=== PATIENT | female | born 1980 | race Caucasian/White ===

== ENCOUNTER 2021-11-02 08:03 | Day surgery (SDC) | payer OTHER, BC ==
[~2021-11-02] VITALS: Ht 165.1 cm; Wt 64.5 kg
[~2021-11-02 08:03] MED LIST: ADDERALL 20 MG20 MG PO; DEPO-SUBQ104 MG/0.6 SQ; EQ STOOL SOFTE1 EACH PO; PHILLIPS' LAXA100 MG PO; PRENATAL VITAM1 EACH PO; PROZAC20 MG PO; TRAZODONE HCL50 MG PO; TYLENOL325 MG PO
--- NOTE | 2021-11-02 14:21 | NUR ---
1415: PATIENT BACK IN DAY SURGERY ROOM FROM PACU. C/O 11/14 PAIN. PATIENT GIVEN CRACKERS AND THEN APPLESAUCE TO EAT. THEN MEDICATED FOR PAIN WITH 2 TABS OF PERCOCET. VS CHECKED. IV SITE WNL. SCDs ON. BANDAIDS X 3 ON ABDOMEN WITH SCANT AMOUNT OF RED DRAINAGE. PERIPAD IN PLACE WITH NO DRAINAGE. TOLERATING WATER. CALL LIGHT WITHIN REACH. AT BEDSIDE.
[2021-11-02] MEDS ORDERED: OXYCODONE HCL5 MG PO (14:28)
--- NOTE | 2021-11-02 14:28 | NUR ---
11/02/21 1428 Eda Sanchez 1306 PT ARRIVED IN PACU NON RESPONSIVE TO NOXIOUS STIMULI WITH OPA IN PLACE. CHIN LIFT HELD BY RN. 1316 PT REACTIVE. OPA REMOVED. 1324 PT CRYING "IT HURTS." FENTANYL 25MCG GIVEN IVP. 1329 VERBAL ORDER FROM ANESTHESIA. TYLENOL 1GM IV INFUSING. 1332 CRYING AND C/O ABD PAIN. UNABLE TO RATE. FENTANYL 50MCG GIVEN IVP. 1340 TAKING SIPS OF WATER AND TALKING TO STAFF. 1343 CONTINUES TO C/O ABD PAIN. UNABLE TO RATE. FENTANYL 25MCG GIVEN IVP. 1355 MARTINEZ DC'D. BALLOON INTACT. URINE NEON YELLOW AND 700ML EMPTIED. 1400 TO DS. REPORT GIVEN TO RN. AT BEDSIDE. PT WILL TRY JELLO AND TAKE ORAL PAIN PILLS WHEN READY.
[2021-11-02] MEDS ORDERED: IBUPROFEN800 MG PO (14:29)
[2021-11-02] MEDS ORDERED: ACETAMINOPHEN500 MG PO (14:29)
[2021-11-02] MEDS ORDERED: ONDANSETRON ODT8 MG PO (14:30)
--- NOTE | 2021-11-02 15:07 | NUR ---
1500 awoke for vs. rates pain 8/10, able to sleep. children came in and she became more awake and talking.
--- NOTE | 2021-11-02 15:43 | NUR ---
1520: PATIENT C/O NAUSEA. COOL WASHCLOTH PLACED ON FOREHEAD. MEDICATED FOR NAUSEA WITH IV ZOFRAN. PATIENT DROWSY. AWAKENS EASILY TO VOICE. FALLS BACK TO SLEEP EASILY. FAMILY AT BEDSIDE. CALL LIGHT WITHIN REACH.
--- NOTE | 2021-11-02 15:47 | NUR ---
PATIENT REQUESTS SOMETHING TO EAT AND ICED TEA. BOTH ORDERED FROM DIETARY.
--- NOTE | 2021-11-02 16:18 | NUR ---
1610: PATIENT SITTING UP IN BED. VISITING WITH FAMILY MEMBERS. VS CHECKED. NAUSEA IMPROVED. WORKING ON EATING SOUP. SCDs ON. CALL LIGHT WITHIN REACH.
--- NOTE | 2021-11-02 16:30 | NUR ---
HAS BEEN UP TO BR. VOIDS 100MLS.
--- NOTE | 2021-11-02 16:48 | NUR ---
CALL TO DR SANDHU BLADDER SCANNED 172 MLS AFTER VOIDED 100MLS. STATES SHE WILL COME SEE PT.
--- NOTE | 2021-11-02 17:40 | NUR ---
DR SANDHU HERE TO SEE PT. UP TO BR VOIDS 300PLUS MLS URINE. NO BLEEDING NOTED ON BRIDGET PAD. PT OKD TO GO HOME. DR SANDHU AWARE OF VS.
--- NOTE | 2021-11-06 04:30 | OR ---
[facility] [address], [place] [address] Signed DATE OF OPERATION: 11/02/2021 SURGEON: Jackeline Huizar MD EPIC WILLOW SPECIALIST: Adis Noel DO PREOPERATIVE DIAGNOSIS: Dysmenorrhea, menorrhagia, dyspareunia, prior tubal ligation. POSTOPERATIVE DIAGNOSIS: Dysmenorrhea, menorrhagia, dyspareunia, prior tubal ligation with endometriosis on the posterior aspect of the uterus. PROCEDURE: Total laparoscopic hysterectomy with bilateral salpingectomy, cystoscopy. ANESTHESIA: General ET. ESTIMATED BLOOD LOSS: 75 mL. DRAINS: Smith catheter. INDICATIONS AND FINDINGS: The patient is 40-year-old female who has been having ongoing issues with dysmenorrhea, menorrhagia, and dyspareunia. She does not tolerate hormonal contraception in any form. She is status post prior tubal ligation. After the options were discussed, she wished to proceed with definitive treatment. At the time of surgery, exam under anesthesia was normal. At the time of laparoscopy, she had evidence of prior tubal ligation. The ovaries were normal. The posterior aspect of the uterus had a chocolate cyst. DESCRIPTION OF PROCEDURE: The patient was prepped and draped in the dorsal lithotomy position. A weighted speculum was placed. The anterior lip of the cervix was visualized and grasped with a single-tooth tenaculum. The cavity was sounded to 9 cm. The endocervical canal was then dilated and a VCare cannula placed in the balloon inflated at the fundus. The tenaculum and speculum were removed. The cup was fitted over the cervix and a locking Electronically Signed By: JACKELINE HUIZAR MD 11/06/21 0430 PATIENT NAME: SHAKIR PATE OPERATIVE REPORT DATE OF : 78 REPORT #: [id number] PHYSICIAN: JACKELINE HUIZAR MD PCP: RAMONE DICKENS PAC REPORT IS CONFIDENTIAL AND NOT TO BE RELEASED WITHOUT AUTHORIZATION [facility] [address], [place] [address] Signed cap fitted into place. Attention was directed above. The infraumbilical area was injected with 0.5% Marcaine plain. An incision was made with a knife, and each layer serially elevated and incised until the fascia was opened and identified. Stay sutures of 0 Vicryl were placed. The peritoneum was opened bluntly. Placement of the Palacio was then done and the balloon inflated and it was tied into place. Placement of the scope confirmed proper positioning. The pelvis was visualized and the planned procedure appeared appropriate. The secondary ports were then placed. These were placed laterally and slightly below the level of the umbilicus. Each of these areas were transilluminated, injected with the Marcaine, incision made with a knife and the trocars placed under direct vision. The left-sided port was a 5 mm port and the right was a Veress needle with the expanding port. The LigaSure [place] device was then used to serially coagulate and divide the mesosalpinx of the patient's left tube and this was divided at the cornu and the specimen retrieved. The same procedure was done on the patient's right. The patient's left utero-ovarian pedicle and round ligament were then serially coagulated and divided. This allowed the anterior leaf of the peritoneum to be incised allowing for a partial bladder flap. The posterior peritoneum was taken down as well. The uterine vessels were then skeletonized and coagulated multiple times and then divided. Following this, attention was directed to the patient's right side where the same procedure was done. This completed the bladder flap as well as the peritoneum posteriorly and the uterine vessels were coagulated and divided. Following this, further dissection was done both posteriorly and anteriorly till the cup could be appreciated. Following this, it was felt that the specimen could be removed. The J-hook was then used to separate the specimen from the vaginal cuff. This was begun posteriorly and wrapped around the left anteriorly and then again posteriorly and wrapped around the right. The specimen was retrieved vaginally intact. The vaginal canal was then packed with a wet lap in a glove to allow the pneumoperitoneum to reaccumulate. Following this, the abdomen was irrigated. There were some bleeding points near the patient's left uterine vessels and these were controlled with the LigaSure as well as monopolar cautery. The cuff was closed using the Endostitch. This was begun at the patient's right uterosacral ligament, taking care to incorporate the vaginal mucosa both posteriorly and anteriorly and run to the patient's left uterosacral ligament and back to the center. Following this, the pelvis was inspected and there was good hemostasis noted. Because of the large raw area, Tisseel was sprayed over the cuff and to aid in hemostasis. The instruments removed from the abdomen after allowing as much CO2 as possible to escape. The fascial incision at the umbilicus was reidentified and closed with a running suture of 0 Vicryl. The skin incisions were closed with subcuticular sutures of 3-0 Vicryl Rapide. Attention was directed down below and the glove was removed from the vagina. The Smith catheter was then removed and the cystoscopy was done. She had received IV fluorescein. The 30-degree cystoscope was introduced and there was no evidence of any injury to the bladder. Both ureteral orifices were seen almost immediately with prompt spill of fluorescein stained urine bilaterally. Following this, the bladder was drained and the Electronically Signed By: JACKELINE HUIZAR MD 11/06/21 0430 PATIENT NAME: SHAKIR PATE OPERATIVE REPORT DATE OF : 78 REPORT #: [id number] PHYSICIAN: JACKELINE HUIZAR MD PCP: RAMONE DICKENS PAC REPORT IS CONFIDENTIAL AND NOT TO BE RELEASED WITHOUT AUTHORIZATION [facility] [address], [place] [address] Signed Smith catheter was replaced. All sponge and needle counts were correct. She was taken to the recovery room in good condition. Jackeline Huizar MD PJW/MODL /[id number] cc: Dr. FONSECA Noel Copies: ~ Electronically Signed By: JACKELINE HUIZAR MD 11/06/21 0430 PATIENT NAME: SHAKIR PATE OPERATIVE REPORT DATE OF : 78 REPORT #: [id number] PHYSICIAN: JACKELINE HUIZAR MD PCP: RAMONE DICKENS PAC REPORT IS CONFIDENTIAL AND NOT TO BE RELEASED WITHOUT AUTHORIZATION
== END 2021-11-02 17:30 | disposition home or self-care (01) ==
LOC: DS 08:03
PROVIDERS: ATTEND Obstetrics & Gynecology
PROC: 0UT74ZZ Resection of Bilateral Fallopian Tubes, Percutaneous Endoscopic Approach (ICD-10-PCS; 2021-11-02)
PROC: 0UT94ZZ Resection of Uterus, Percutaneous Endoscopic Approach (ICD-10-PCS; principal; 2021-11-02 11:45)
DX: N80.0 Endometriosis of uterus (principal); N92.1 Excessive and frequent menstruation with irregular cycle; N94.12 Deep dyspareunia; N94.4 Primary dysmenorrhea; D25.9 Leiomyoma of uterus, unspecified; J45.20 Mild intermittent asthma, uncomplicated; Z98.51 Tubal ligation status; Z88.2 Allergy status to sulfonamides; Z87.891 Personal history of nicotine dependence
CPT/HCPCS: 00840; J0131; J0330; J0461; J0690; J1100; J1644; J1885; J2250; J2405; J2704; J2765; J3010; J7121

== ENCOUNTER 2023-11-19 09:30 | Emergency (ER) | payer OTHER, BC ==
[~2023-11-19] VITALS: Ht 165.1 cm; Wt 72.2 kg
[~2023-11-19 09:30] MED LIST changes: +ACETAMINOPHEN500 MG PO; +IBUPROFEN800 MG PO; +ONDANSETRON ODT8 MG PO; +OXYCODONE HCL5 MG PO
[2023-11-19] MEDS ORDERED: KETOROLAC TROMETHAMINE 30 MG/ML VIAL IV ONE (10:15)
[2023-11-19] MEDS ORDERED: PROPRANOLOL HCL10 MG PO (10:19)
[2023-11-19] MEDS ORDERED: FLUOXETINE HCL40 MG PO (10:20)
[2023-11-19] MEDS ORDERED: DOXYCYCLINE MO100 MG PO (10:20)
[2023-11-19] MEDS ORDERED: METHYLPHENIDATE27 MG PO (10:20)
[2023-11-19 10:35] LABS: BASOPHILS 0.2 % (0-2); EOSINOPHILS 0.3 % (0-6); HEMATOCRIT 38.7 % (35.0-50.0); HEMOGLOBIN 13.7 g/dL (12.0-18.0); LYMPHOCYTES 34.5 % (24-44); MCH 31.9 (27-36); MCHC 35.4 g/dl (30-36); MONOCYTES 6.5 % (0-12); NEUTROPHILS 58.5 % (39-80); PLATELET COUNT 241 K/uL (140-440); RBC 4.29 M/ul (4.3-5.7); RDW 12.5 (10.5-15.0)
[2023-11-19 11:00] LABS: ALBUMIN 3.9 g/dL (3.4-5.0); ALBUMIN/GLOBULIN RATIO 1.08 (1.1-2.4); ALKALINE PHOSPHATASE 75 U/L (46-116); ALT (SGPT) 32 U/L (14-59); ANION GAP 13.5 (7-21); AST (SGOT) 16 U/L (15-37); BILIRUBIN, TOTAL 0.4 ng/dL (0.2-1.0); BUN/CREATININE RATIO 15.87 (6.0-28.6); CALCIUM 8.8 mg/dL (8.5-10.1); CARBON DIOXIDE 25 mmol/L (21-32); CHLORIDE 105 mmol/L (98-107); CREATININE, SERUM 0.63 mg/dL (0.55-1.02); GLOMERULAR FILTRATION RATE,EST 113 mL/min (>60); POTASSIUM 3.5 mmol/L (3.5-5.1); PROTEIN, TOTAL 7.5 g/dL (6.4-8.2); UREA NITROGEN 10 mg/dL (7-18)
[2023-11-19 11:26] LABS: INFLUENZA B NAA NEGATIVE (NEGATIVE); RESPIRATORY SYNCYTIAL VIR NAA NEGATIVE (NEGATIVE)
[2023-11-19 11:44] VITALS: BP 101/69
--- NOTE | 2023-11-22 21:28 | EKG ---
[facility] [address] [facility] [place] [address] Signed Normal sinus rhythm Nonspecific ST and T wave abnormality Abnormal ECG When compared with ECG of 24-OCT-2021 15:08, No significant change was found Confirmed by Juanjo Agustin MD ([id number]) on 11/22/2023 9:28:23 PM Electronically Signed By: JUANJO AGUSTIN DO 11/22/232127 PATIENT NAME: SHAKIR PATE LANDY Electrocardiogram DATE OF : 78 PHYSICIAN: JUANJO AGUSTIN DO REPORT #: [id number] REPORT IS CONFIDENTIAL AND NOT TO BE RELEASED WITHOUT AUTHORIZATION
== END 2023-11-19 11:45 | disposition home or self-care (01) ==
LOC: ED 09:30
PROVIDERS: Emergency Medicine
DX: R06.02 Shortness of breath (principal); F90.9 Attention-deficit hyperactivity disorder, unspecified type; Z88.2 Allergy status to sulfonamides; Z79.899 Other long term (current) drug therapy
CPT/HCPCS: 36415; 71045; 80053; 83880; 84484; 85025; 85379; 87502; 93005; 93010; 96374; 99285-25; J1885; U0002

== ENCOUNTER 2024-04-24 20:53 | Emergency (ER) | payer OTHER, BC ==
[~2024-04-24] VITALS: Ht 165.1 cm; Wt 70.0 kg
[~2024-04-24 20:53] MED LIST changes: +DOXYCYCLINE MO100 MG PO; +FLUOXETINE HCL40 MG PO; +METHYLPHENIDATE27 MG PO; +PROPRANOLOL HCL10 MG PO
[2024-04-24 23:20] VITALS: BP 123/76
== END 2024-04-24 23:21 | disposition home or self-care (01) ==
LOC: ED 20:53
DX: S60.221A Contusion of right hand, initial encounter (principal); X58.XXXA Exposure to other specified factors, initial encounter; Z88.2 Allergy status to sulfonamides; Z79.899 Other long term (current) drug therapy
CPT/HCPCS: 73130; 99283

== ENCOUNTER 2024-10-10 05:53 | Day surgery (SDC) | payer OTHER, BC ==
[~2024-10-10] VITALS: Ht 165.1 cm; Wt 73.0 kg
[~2024-10-10 05:53] MED LIST changes: +CLONAZEPAM0.5 MG PO; +LACTATED RINGER'S 1,000 ML IV SCH
[2024-10-10 06:20] VITALS: BP 110/70
--- NOTE | 2024-10-10 06:29 | NUR ---
ISABEL AT BS AND IS INSURANCE SALES SPECIALIST.
[2024-10-10] MEDS ORDERED: LIDOCAINE HCL 1% 5 ML SDV INJ ONE (07:00)
[2024-10-10] MEDS ORDERED: IBLOOD GLUCOSE TEST STRIP 1 EA TEST VI PRN (07:00)
[2024-10-10] MEDS ORDERED: LIDOCAINE HCL 2% 5 ML SDV ONE (07:20)
--- NOTE | 2024-10-10 07:56 | NUR ---
PT NOT AVAILABLE FOR VISIT. PROVIDED PRAYER.
--- NOTE | 2024-10-10 08:34 | NUR ---
10/10/24 0834 Noel,Monica Neumann 0832: PATIENT/ C/O NAUSEA. NEW ORDERS OBTAINED FROM SHORT HAUL DRIVER.
[2024-10-10] MEDS ORDERED: DEXAMETHASONE SOD PHOS 4 MG/ML VIAL IV PRN (08:45)
[2024-10-10 10:20] VITALS: BP 93/62
--- NOTE | 2024-10-14 14:18 | PATH ---
[facility] [address] [place], [place] [address] Signed SPECIMEN(S): A ILEOCECAL VALVE COLON BIOPSY SPECIMEN SOURCE: A. ILEOCECAL VALVE COLON BIOPSY CLINICAL HISTORY: History of polyps, rectal bleeding, lower abdominal pain, ileocecal polyp, sigmoid diverticulosis FINAL PATHOLOGIC DIAGNOSIS: Ileocecal valve, biopsies - Benign ileocecal mucosa with focal acute neutrophilic inflammation, nonspecific. - Negative for granulomas or dysplasia. AMB MICROSCOPIC EXAMINATION: Histologic sections of all submitted blocks are examined by light microscopy. These findings, together with the gross examination, support the pathologic diagnosis. GROSS DESCRIPTION: The specimen, labeled and designated "Roxi, ileocecal valve colon biopsy," is received in formalin and consists of four fuentes soft tissue fragments, ranging from 0.3-0.4 cm. Entirely submitted in (A1). VB (under the direct supervision of a pathologist) The Gross Description was prepared using a voice recognition system. The report was reviewed for accuracy; however, sound-alike word errors, addition and/or deletions may occur. If there is any question about this report, please contact Client Services. ADDITIONAL NOTES: Immunohistochemical and/or in situ hybridization studies if performed in this case included appropriate positive controls that reacted as expected. This test was developed and its performance characteristics determined by [facility]. It has not been cleared or approved by the U.S. Food and Drug Administration. The FDA has determined that such clearance or approval is not necessary. This test is used for clinical purposes. It should not be regarded as investigational or for research. [facility] is certified under the Clinical Laboratory Improvement PATIENT NAME: SHAKIR PATE PATHOLOGY DATE OF : 78 REPORT #: [id number] PHYSICIAN: ALVA LOVE PCP: RAMONE DICKENS PAC REPORT IS CONFIDENTIAL AND NOT TO BE RELEASED WITHOUT AUTHORIZATION [facility] [address] [facility] [place] [address] Signed Amendments of 1988 (CLIA) as qualified to perform high complexity clinical laboratory testing. PERFORMING LABORATORY: Technical component was performed by [facility], [address] [place] [address] (CLIA# [id number]). Professional interpretation was performed by [facility] [address] [place] [id number] Diagnostician: Sharee Orta MD Pathologist Electronically Signed 10/14/2024 Copies: ~ PATIENT NAME: SHAKIR PATE PATHOLOGY DATE OF : 78 REPORT #: [id number] PHYSICIAN: ALVA LOVE PCP: RAMONE DICKENS PAC REPORT IS CONFIDENTIAL AND NOT TO BE RELEASED WITHOUT AUTHORIZATION
== END 2024-10-10 09:36 | disposition home or self-care (01) ==
LOC: DS 05:53
PROVIDERS: ATTEND Surgery
PROC: 0DBC8ZX Excision of Ileocecal Valve, Via Natural or Artificial Opening Endoscopic, Diagnostic (ICD-10-PCS; principal; 2024-10-10 07:30)
DX: K51.40 Inflammatory polyps of colon without complications (principal); K21.9 Gastro-esophageal reflux disease without esophagitis; Z79.899 Other long term (current) drug therapy; Z88.2 Allergy status to sulfonamides; Z91.018 Allergy to other foods; Z91.048 Other nonmedicinal substance allergy status
CPT/HCPCS: 00811; J1100; J2003; J2405; J2704; J7121

== ENCOUNTER 2024-10-29 09:51 | Inpatient (IN) | payer OTHER, BC ==
[2024-10-29] VITALS (7 sets, daily range): BP systolic 107–138; BP diastolic 57–75
[~2024-10-29] VITALS: Ht 165.1 cm; Wt 70.0 kg
[~2024-10-29 09:51] MED LIST changes: +AMP/SULBACTAM SOD 3 GM in SODIUM CHLORIDE 0.9% 100 ML IV SCH; +HEParin SOD (PORCINE) 5,000 UNIT/ML SDV SUB-Q SCH; +IBLOOD GLUCOSE TEST STRIP 1 EA TEST VI PRN; +LIDOCAINE HCL 1% 5 ML SDV INJ ONE
[2024-10-29] MEDS ORDERED: fentaNYL citrate 100 MCG/2 ML VIAL ONE (11:27)
[2024-10-29] MEDS ORDERED: KETAMINE in NS 50 MG/5 ML SYR ONE ×2 (11:27→13:11)
[2024-10-29] MEDS ORDERED: ACETAMINOPHEN 1,000 MG/100 ML VIAL ONE (11:28)
[2024-10-29] MEDS ORDERED: MAGNESIUM SULFATE 1 GM/2 ML VIAL ONE ×2 (11:28→13:11)
[2024-10-29] MEDS ORDERED: SODIUM CHLORIDE 0.9% 40 ML IV ONE ×2 (11:28→13:12)
[2024-10-29] MEDS ORDERED: LIDOCAINE HCL 2% 5 ML SDV ONE ×3 (11:28→13:11)
[2024-10-29] MEDS ORDERED: DEXAMETHASONE SOD PHOS 4 MG/ML VIAL ONE ×2 (11:28→14:28)
[2024-10-29] MEDS ORDERED: SCOPOLAMINE 1 MG/3 DAYS PATCH 1 EACH TDSY ONE (11:39)
[2024-10-29] MEDS ORDERED: ROCURONIUM BROMIDE 50 MG/5 ML SYR ONE ×2 (11:39→12:20)
[2024-10-29] MEDS ORDERED: GLYCOPYRROLATE 1 MG/5 ML MDV ONE (12:20)
[2024-10-29] MEDS ORDERED: KETOROLAC TROMETHAMINE 30 MG/ML VIAL ONE (14:38)
[2024-10-29] MEDS ORDERED: NALOXONE HCL 0.4 MG SYR IV PRN (14:45)
[2024-10-29] MEDS ORDERED: fentaNYL citrate 50 MCG/ML SDV IV PRN (14:45)
[2024-10-29] MEDS ORDERED: HYDROmorphone HCL 1 MG/ML SYR IV PRN (14:45)
[2024-10-29] MEDS ORDERED: IBLOOD GLUCOSE TEST STRIP 1 EA TEST VI PRN (14:45)
[2024-10-29] MEDS ORDERED: SUGAMMADEX SODIUM 200 MG/2 ML ML ONE (14:50)
[2024-10-29] MEDS ORDERED: KETOROLAC TROMETHAMINE 15 MG/ML VIAL IV PRN (15:30)
[2024-10-29] MEDS ORDERED: LACTATED RINGER'S 1,000 ML IV SCH (15:30)
--- NOTE | 2024-10-29 15:40 | NUR ---
10/29/24 1540 Carolina Moore 1521-PATIENT ARRIVED TO PACU ON 6L MASK RR EVEN. PATIENT LAYING SUPINE SR HR 60'S. NG TUBE TO RIGHT NARE MARTINEZ CATHETER DRAINING YELLOW URINE. INCISION SITES INTACT TO ABDOMEN. PATIENT REACHING ARM TO RN. 1522-PATIENT PLACED IN TRENDELEBERG POSITION IVF OPENED BP'S LOW 70'S. PATIENT IS CONFUSED NODDING HEAD. 1525-JOE GROUND CREW CHIEF GAVE 20 MG EPHEDRINE IVP FOR BP 68/41. IVF OPENED AND INFUSING. NG TO LIS. 1527 BP INCREASED TO 80'S/60'S. RN ASKED PATIENT NAME REPORTS "MOM" WHEN RN ASKED WHERE PATIENT IS SHAKES HEAD NO EYES REMAIN CLOSED. PATIENT ORIENTED TO PACU. 1535-PATIENT HAS EYES CLOSED DOING SIGN LANGUAGE IN AIR. PLACED ON RA 93% RR EVEN.
[2024-10-29] MEDS ORDERED: MORPHINE SULFATE 4 MG/ML VIAL IV PRN (15:45)
[2024-10-29] MEDS ORDERED: LIDOCAINE 2% VISCOUS 6 ML SYR TOP ONE (16:00)
--- NOTE | 2024-10-29 16:14 | NUR ---
REPORT RECEIVED FROM SMITH HORTON.
--- NOTE | 2024-10-29 16:20 | NUR ---
PATIENT IS LYING IN BED WITH EYES OPEN AND RESPIRATIONS ARE EVEN AND UNLABORED. ASSESSMENT COMPLETE AND DOCUMENTED IN THE CHART. PATIENT IS ALERT AND ORIENTED TIMES FOUR. SCD'S IN PLACE. CARDIAC WITH NORMAL S1 AND S2 ON AUSCULTATION. RADIAL AND PEDAL PULSES ARE STRONG BILATERALLY. NO EDEMA NOTED. CAPILLARY REFILL IS LESS THAN 3 SECONDS IN THE UPPER AND LOWER EXTREMITIES. SENSATION INTACT WITH NO COMPLAINTS OF NUMBNESS OR TINGLING. PATIENT IS ON 1 L NC WITH THE CPOX AT BEDSIDE. LUNG SOUNDS ARE CLEAR THROUGHOUT. PATIENT IS NPO WITH THE NG TUBE SET TO MEDIUM INTERMITTENT SUCTION. BOWEL TONES ARE ACTIVE IN ALL FOUR QUADRANTS. MARTINEZ CATHETER IN PLACE AND DRAINING YELLOW URINE. IV SITE FLUSHED WITH 10 ML NORMAL SALINE. SURGICAL SITES WITH SUTURES AND DERMABOND. PATIENT RATED PAIN 5/10 IN THE ABDOMEN AND IS REQUESTING SOMETHING FOR PAIN. PATIENT WITH SEVERAL VISITORS IN THE ROOM. PATIENT STATED NO FURTHER NEEDS AT THIS TIME. CALL LIGHT AND PERSONAL BELONGINGS ARE WITHIN REACH.
--- NOTE | 2024-10-29 18:40 | NUR ---
INTAKE AND OUTPUT TAKEN AND DOCUMENTED IN THE CHART. PATIENT REPOSITIONED ON HER RIGHT SIDE WITH PILLOWS. PATIENT WITH FOUR VISITORS IN THE ROOM AT THIS TIME. CALL LIGHT AND PERSONAL BELONGINGS ARE WITHIN REACH.
--- NOTE | 2024-10-29 19:49 | NUR ---
REPORT RECEIVED FROM DAY SHIFT RN. VS OBTAINED AND RECORDED. PATIENT REPOSITIONED TO LEFT SIDE. THIS RN DISCUSSED PAIN MANAGEMENT PLAN FOR THE NIGHT. PATIENT VERBILIZED UNDERSTANDING. PATIENT DENIES FURTHER NEEDS. CALL LIGHT IN REACH.
--- NOTE | 2024-10-29 19:50 | NUR ---
call light on, in pt rm to see needs, pt asking about pain meds/available?, pt also repositioned to the rt side, pillow to the left shoulder and hip, 2x pillow on the knees, RN informed
[2024-10-29] MEDS ORDERED: AMP/SULBACTAM SOD 3 GM in SODIUM CHLORIDE 0.9% 100 ML IV SCH (20:00)
--- NOTE | 2024-10-29 20:20 | NUR ---
PATIENT RESTING IN BED. SCHEDULED IV ABX INFUSING PER ORDER. ASSESSMENT COMPLETE. BOWEL TONES ACTIVE. ABD LAP SITES C/D/I. MARTINEZ CATH CARE PROVIDED PER PROTOCOL. SCDs IN PLACE. 1L NC REMAINS IN PLACE. CPOX IN PLACE. NG TUBE ON MIWS. NO FURTHER NEEDS AT THIS TIME. CALL LIGHT IN REACH.
[2024-10-29] MEDS ORDERED: FAMOTIDINE 20 MG/ 2 ML VIAL IV SCH (21:00)
[2024-10-29] MEDS ORDERED: HEParin SOD (PORCINE) 5,000 UNIT/ML SDV SUB-Q SCH (21:00)
--- NOTE | 2024-10-29 21:34 | NUR ---
PATIENT REQUESTING PAIN MEDICATION FOR 9/10 ABD PAIN. PRN PAIN MEDICATION ADMINISTERED PER PATIENT REQUEST. PATIENT DENIES FURTHER NEEDS AT THIS TIME. CALL LIGHT IN REACH. PATIENT EDUCATED TO CALL IF SHE NEEDS ANYTHING. SISTER REMAINS IN ROOM AT BEDSIDE.
[2024-10-29] MEDS ORDERED: ACETAMINOPHEN 500 MG TAB PO SCH (22:00)
--- NOTE | 2024-10-29 22:29 | NUR ---
PATIENT LAYING IN BED. PATIENT CALLED ABOUT SOUND FROM NG TUBE. PATIENT WAS EDUCATED ON WHAT IS WAS. PATIENTS CALL LIGHT IS WITHIN REACH AND NO FURTHER NEEDS AT THIS TIME.
[2024-10-30] VITALS (11 sets, daily range): BP systolic 85–104; BP diastolic 48–59
--- NOTE | 2024-10-30 02:08 | NUR ---
NEW BAG SCHEDULED IV ABX INFUSING PER ORDER. PATIENT REPORTING 7/10 ABD PAIN. PRN PAIN MEDICATION ADMINISTERED PER PATIENT REQUEST. PATIENT DENIES FURTHER NEEDS AT THIS TIME. CALL LIGHT IN REACH.
--- NOTE | 2024-10-30 03:25 | NUR ---
CALL LIGHT ANSWERED. PATIENT REQUESTING PAIN MEDICATION. PRN PAIN MEDICATION ADMINISTERED. PATIENT DENIES FURTHER NEEDS AT THIS TIME. CALL LIGHT IN REACH.
[2024-10-30 05:35] LABS: BASOPHILS 0 % (0.1-1.2); EOSINOPHILS 0 % (0.7-5.8); LYMPHOCYTES 6.5 % (19.3-51.7); MCH 30.9 PG (25.6-32.2); MCHC 35.0 g/dL (32.2-35.5); MCV 88.1 fL (79.4-94.8); MONOCYTES 5.4 % (4.7-12.5); NEUTROPHILS 87.6 % (34.0-71.1); RBC 4.05 M/uL (3.93-5.22)
[2024-10-30 05:47] LABS: GLOMERULAR FILTRATION RATE,EST 113.0 mL/min (>60); UREA NITROGEN 8.0 mg/dL (7-18)
--- NOTE | 2024-10-30 06:48 | NUR ---
PATIENT RESTING IN BED. I&Os OBTAINED AND RECORDED. ASSESSMENT COMPLETE. PATIENT REPORTS 7/10 ABD PAIN. PRN PAIN MEDICATION ADMINISTERED PER ORDER. PATIENT DENIES FURTHER NEEDS. CALL LIGHT IN REACH.
--- NOTE | 2024-10-30 07:20 | NUR ---
RECIEVED REPORT FROM SMITH PRATHER. PT IS RESTING IN BED WITH EYES OPEN, VISITING WITH FAMILY. NG TUBE IS IN PLACE. FRESH ICE CHIPS PROVIDED PER PT REQUEST. CALL LIGHT AND PERSONAL BELONGINGS ARE WITHIN REACH.
--- NOTE | 2024-10-30 08:04 | NUR ---
PT RESTING IN BED, VISITING WITH FAMILY AND PURCHASING MANAGER/SALES. NG TUBE IN PLACE. CALL LIGHT AND PERSONAL BELONGINGS ARE WITHIN REACH.
--- NOTE | 2024-10-30 08:11 | NUR ---
VISITED DURING SPIRITUAL CARE ROUNDS. PT SUPPORTED BY FAMILY IN ROOM. ALL IN OVERALL GOOD SPIRITS, EXPRESSED AUTUMN AND FAMILY SOURCES OF STRENGTH. REQUESTED CASTING CHIPPER VISIT. WHITE GOODS APPLIANCE TECH RELAYED REQUEST TO CASTING CHIPPER VIA USUAL METHODS. WHITE GOODS APPLIANCE TECH PROVIDED SUPPORTIVE PRESENCE, HOSPITALITY, PRAYER, FACILITATED CONNECTION WITH AUTUMN FAMILY. PT AND FAMILY EXPRESSED GRATITUDE.
--- NOTE | 2024-10-30 08:30 | NUR ---
PT IN BED WITH HEAD ELEVATED, VISITING WITH FAMILY. NG TUBE IN PLACE. MORNING MEDS ADMINISTERED PER THE EMAR. CALL LIGHT AND PERSONAL BELONGINGS ARE WITHIN REACH. PT DENIES ANY NEEDS AT THIS TIME.
--- NOTE | 2024-10-30 09:00 | NUR ---
Spoke with Loki and her mother. Pt lives in [place] with her spouse and 2 children. 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 She states concern her spouse may not want to help her as much as needed. Mom reminds her she can go home with her. Mom also cares for pts kids. Pt upset as she believes her MS has been stopped as she recieved IV Toradol. I let her know I will ask her nurse to provide further education. Per her nurse. MS was not stopped, Toradol was given as ordered. Pt denies financial concerns or safety concerns. She denies DV in her home. He main concern is for her 4 pugs. Mom reminded her to not be concerned as they are being cared for.
--- NOTE | 2024-10-30 09:40 | NUR ---
PATIENT MEDICATED PER EMAR. PATIENT ASSESSMENT COMPLETED. PATIENT REPORTS PRESSURE IN HER BLADDER. MARTINEZ CATHETER ASSESSED AND DRAINING SMALL AMOUNTS. PATIENT REPOSITIONED, LEGS LOWERED, URINE STARTED FLOWING OUT. PATIENT WITH 475ML OF URINE OUTPUT AND REPORTS PRESSURE RELIEF IN HER BLADDER AFTER URINE DRAINAGE. PATIENT WITHOUT FURTHER NEEDS AT THIS TIME. CALL LIGHT AND PERSONAL BELONGINGS ARE WITHIN REACH. PATIENT WITH FAMILY AT BEDSIDE.
--- NOTE | 2024-10-30 11:17 | NUR ---
VISITED DURING SPIRITUAL CARE ROUNDS. PT EXHIBITING SIGNS OF PAIN, UNABLE TO BE STILL, LACK OF ENERGY, TEARS. WINDOW GLASS CUTTER OFF ADVOCATED FOR PT WITH NURSING STAFF TO SEE IF PAIN RELIEF WAS AVAILABLE. NURSING STAFF RESPONDED QUICKLY WITH AVAILABLE MEDICATION. PT AND MOTHER REQUESTED ALTERNATE CRUCIFIX, STATING CAMARA MARIE CRUCIFIX NOT FAMILIAR AND SO NOT COMFORTING. WINDOW GLASS CUTTER OFF PROVIDED ALTERNATIVE, ASSISTED MOTHER IN MOUNTING IN PLACE VISIBLE TO PT.
--- NOTE | 2024-10-30 11:21 | NUR ---
KERMIT BEASLEY COMES TO THIS RN STATING PATIENT IS C/O SEVERE PAIN. REVIEWED MAR AND VERIFIED WITH PRIMARY RN. THIS RN/WAYNE RN PROVIDES PRN MEDS FOR 8/10 PAIN. REPOSITIONED PATIENT TO LEFT SIDE PER PATIENT REQUEST. WARM BLANKET PROVIDED. ROOM CLEANED UP. PT WOULD LIKE TO TAKE A NAP AND THEN WOULD LIKE TO AMBULATE THE HALLWAYS. NO OTHER NEEDS AT THIS TIME, MOTHER LEFT ONCE PATIENT REPOSITIONED IN BED. EYE MASK IN PLACE AND PATIENT USING WHEN LEAVING ROOM.
--- NOTE | 2024-10-30 11:30 | NUR ---
MED REC COMPLETE
--- NOTE | 2024-10-30 11:39 | NUR ---
UR CLINICAL RE[place] [facility] [place]OM[place] BY LAPAROSCOPY MASS OF ILEOCECAL VALVE, REMOVAL FOR COMPLETE BIOPSY NEEDED IV FLUIDS, NPO, IV MEDS [facility]PT 10/29/2024 @ 1555 ORDER MATCHES REG AUTH PENDING. WILL SEND CLINICALS VIA [employer] PLAN TO DC TO HOME WHEN MEDICALLY READY
--- NOTE | 2024-10-30 12:30 | NUR ---
PATIENT RESTING IN BED WITH HER EYES CLOSED. PATEINT EASILY WOKE WHEN THIS RN WALKED IN ROOM. PATIENT REPORTS "FEELING BETTER" BUT DENIES A WALK AT THIS TIME. PATIENT WITHOUT FURTHER NEEDS AT THIS TIME. IV FLUIDS INFUSING PER ORDER. CALL LIGHT AND PERSONAL BELONGINGS ARE WITHIN REACH.
--- NOTE | 2024-10-30 13:05 | NUR ---
DR MCKINNON AT BEDSIDE.
--- NOTE | 2024-10-30 13:10 | NUR ---
DR MCKINNON WITH VERBAL ORDER TO PULL MARTINEZ AND STATES HE WILL ENTER NEW MEDICATION ORDERS. WITH NO FURTHER ORDERS AT THIS TIME.
[2024-10-30] MEDS ORDERED: ACETAMINOPHEN 500 MG TAB PT SCH (14:00)
--- NOTE | 2024-10-30 14:00 | NUR ---
JANICE LEBRON IN ROOM REMOVING MARTINEZ.
--- NOTE | 2024-10-30 14:35 | NUR ---
PATIENT MEDICATED PER EMAR. PATIENT NG TUBE CLAMPED FOR MEDICATION ABSORPTION. PATIENT EDUCATED TO CALL THIS RN IF SHE BECOMES NAUSEATED. IV FLUSHED WITH 10ML OF NS, IV FLUIDS AND ABX INFUSING PER ORDER. AFTER 5 MINS OF PATIENT NG TUBE BEING CLAMPED, PATIENT REPORTS BEING NAUSEATED. PRN DOSE OF ZOFRAN ADMINISTERED. PATIENT REPORTS RELIEF OF NAUSEA. EMESIS BAG PROVIDED. PATIENT EDUCATED TO CALL IF SHE BECOMES NAUSEATED AGAIN. PATIENT WITH VERBAL UNDERSTANDING AND IS WITHOUT FURTHER NEEDS AT THIS TIME. CALL LIGHT AND PERSONAL BELONGINGS ARE WITHIN REACH. JANICE FLOYD IN ROOM OBTAINING VITAL SIGNS. SMITH BLACK IN ROOM REINFORCING NG TUBE WITH TAPE TO PATIENT'S NOSE.
--- NOTE | 2024-10-30 14:42 | NUR ---
PATIENT AMBULATED HALLWAYS WITH SBA FROM THIS BUSINESS DEVELOPMENT MANAGER. PATIENT TOLERATED AMBULATION WELL WITH NO REPORTS OF DIZZINESS AND WAS STEADY ON THEIR FEET. JUAN WAS DC'd AT 1400 BY TIMOTHY LEBRON.
--- NOTE | 2024-10-30 15:10 | NUR ---
PATIENT REPORTING INCREASE ANXIETY ABOUT BEING IN SEVERE PAIN AGAIN. DR MCKINNON CALLED ABOUT ORDERS HE TOLD PATIENT HE WOULD GIVE, BUT HAVE NOT BEEN ADDED TO PATIENT'S EMAR. NO ANSWER WITH CALL, VOICEMAIL LEFT.
[2024-10-30] MEDS ORDERED: ALPRAZolam 0.5 MG TAB PO PRN (16:15)
--- NOTE | 2024-10-30 16:50 | NUR ---
PATIENT MEDICATED PER EMAR. NG TUBE CLAMPED FOR PO MEDICATION ABSOPTION. PATIENT TOLERATING WELL. PATIENT IV FLUSHED WITH 10ML OF NS, DRESSING IS INTACT. IV FLUIDS INFUSING PER ORDER. PATIENT WITHOUT FURTHER NEEDS AT THIS TIME. CALL LIGHT AND PERSONAL BELONGINGS ARE WITHIN REACH.
--- NOTE | 2024-10-30 17:38 | NUR ---
PT LAYING IN BED WITH HEAD ELEVATED. FAMILY IN ROOM. NG TUBE IS IN PLACE, CALL LIGHT AND PERSONAL BELONGINGS ARE WITHIN REACH. PT DENIES ANY NAUSEA AT THIS TIME.
--- NOTE | 2024-10-30 17:43 | NUR ---
THIS FLUX MIXER DISCONTINUED PATIENTS MARTINEZ PER RN FLORIDALMA REQUEST. CALL LIGHT WIHTIN REACH, NO FURTHER NEEDS.
--- NOTE | 2024-10-30 18:05 | NUR ---
PATIENT REATTACHED TO SUCTION. PATIENT TOLERATED NG TUBE BEING CLAMPED, WELL. PATIENT REPORTS RELIEF IN PAIN AND ANXIETY AND STATES "I THINK THAT MEDICINE IS GOING TO HELP ME SLEEP." PATIENT WITHOUT FURTHER NEEDS AT THIS TIME. CALL LIGHT AND PERSONAL BELONGINGS ARE WITHIN REACH.
--- NOTE | 2024-10-30 19:20 | NUR ---
SBA AMBULATION WITH THIS ORDER PROCESSING SPECIALIST. PATIENT TOLERATED IT WELL AND WAS STEADY ON THEIR FEET. THEY REPORTED NO PAIN, DIZZINESS, OR NAUSEA.
--- NOTE | 2024-10-30 19:34 | NUR ---
REPORT RECEIVED FROM DAY SHIFT RN. PATIENT RESTING IN BED. DENIES NEEDS AT THIS TIME. CALL LIGHT IN REACH.
[2024-10-30] MEDS ORDERED: FLUOXETINE HCL 20 MG CAP PO SCH (21:00)
--- NOTE | 2024-10-30 21:45 | NUR ---
PATIENT RESTING IN BED. SCHEDULED MEDICATION ADMINSITERED. PATIENT NAY WELL. IV FLUSHES WNL. ASSESSMENT COMPLETE. PATIENT LAP SITES C/D/I. PATIENT REQUESTING TO AMBULATE HALLWAY. JANICE LUCAS TO ROOM TO ASSIST PATIENT WITH AMBULATION.
--- NOTE | 2024-10-30 22:40 | NUR ---
PT AMBULATED TO THE TOILET AND THEN WITH THE USE OF A WALKER, SHE WALKED ONE AND A HALF LAPS AROUND THE [facility] FLOOR. STAND BY ASSIST, WITH PT RATING HER INCISION PAIN AT A 8 OUT OF TEN, WHICH WAS REPORTED TO HER NURSE. PT RETURNED TO HER ROOM WHERE THIS DISTILLATION OPERATOR HELPER HOOKED UP HER OXIMETER AND POSITIONED THE PT ON HER RIGHT SIDE WITH PILLOWS FOR COMFORT. TRASH REMOVED AND URINE EMPTIED AND DOCUMENTED. GOT PT FRESH ICE PACK FOR INCISION ON HER ABDOMEN. CALL LIGHT WITHIN REACH, AND A VISITOR IN THE ROOM. PT REPORTED NEEDING NOTHING MORE AT THIS TIME.
[2024-10-31] VITALS (7 sets, daily range): BP systolic 82–104; BP diastolic 52–59
--- NOTE | 2024-10-31 00:45 | NUR ---
PATIENT RESTING IN BED. REPORTS 08/14 ABD PAIN. PRN PAIN MEDICATION ADMINISTERED PER PATIENT REQUEST. PATIENT DENIES FURTHER NEEDS. CALL LIGHT IN REACH.
--- NOTE | 2024-10-31 03:05 | NUR ---
PATIENT RESTING IN BED ON BACK WITH EYES CLOSED. RESPIRATIONS EVEN AND UNLABORED. CALL LIGHT IN REACH.
--- NOTE | 2024-10-31 03:54 | NUR ---
CALL LIGHT ANSWERED. PATIENT REPORTING 5/10 PAIN. PRN PAIN MEDICATION ADMINISTERED. PATIENT DENIES FURTHER NEEDS. CALL LIGHT IN REACH.
--- NOTE | 2024-10-31 06:10 | NUR ---
PATIENT RESTING IN BED. SCHEDULED AND PRN MEDICATION ADMINISTERED. PATIENT DENIES FURTHER NEEDS. CALL LIGHT IN REACH.
--- NOTE | 2024-10-31 06:43 | NUR ---
AMBULATED HALLS WITH PT X1 LAP, TOLERATED WELL. HELPED PT BACK TO BED AND PILLOWS PLACED UNDER LEFT HIP, PT IN RIGHT SIDE LYING POSITION.
--- NOTE | 2024-10-31 06:58 | NUR ---
PATIENT REPORTING 6/10 PAIN. PRN PAIN MEDICATION ADMINISTERED. PATIENT DENIES FURTHER NEEDS. CALL LIGHT IN REACH.
--- NOTE | 2024-10-31 07:16 | NUR ---
REPORT RECIEVED FROM SMITH PRATHER. PATIENT RESTING IN BED AND IS WITHOUT ANY NEEDS AT THIS TIME. NG TUBE SUCTIONING PER ORDER. IV FLUIDS INFUSING PER ORDER. PATIENT DENIES ANY NAUSEA. CALL LIGHT AND PERSONAL BELONGINGS ARE WITHIN REACH.
--- NOTE | 2024-10-31 08:45 | NUR ---
PATIENT RESTING IN BED WITH FAMILY AT BEDSIDE. NO NEEDS AT THIS TIME. CALL LIGHT AND PERSONAL BELONGINGS ARE WITHIN REACH.
--- NOTE | 2024-10-31 09:41 | NUR ---
PATIENT MEDICATED PER EMAR. PATIENT ASSESSMENT COMPLETED. IV FLUSHED WITH 10ML OF NS, DRESSING IS INTACT. PATIENT SALINE LOCKED AND NG TUBE CLAMPED FOR AMBULATION TO THE BATHROOM AND WALK IN THE HALLS. PATIENT WITHOUT FURTHER NEEDS FROM THIS RN AT THIS TIME. CALL LIGHT AND PERSONAL BELONGINGS ARE WITHIN REACH. PATIENT SISTER AT BEDSIDE.
--- NOTE | 2024-10-31 09:49 | NUR ---
INTO SEE PATIENT. MOTHER AT BEDSIDE. PATIENT STATES SHE WAS FEELING BETTER AND AMBULATING THIS MORNING. PATIENT WILL GO HOME WHEN MEDICALLY CLEARED FOR DISCHARGE. MOTHER TO DRIVE HER HOME. GAVE HER INFORMATION FOR [facility] JUST IN CASE SHE NEEDS A WALKER FOR A COUPLE WEEKS POST HOSPITAL STAY. NO FUTHER CM NEEDS.
--- NOTE | 2024-10-31 10:03 | NUR ---
PATIENT BACK IN BED FROM WALK. NG TUBE REATTACHED. IV FLUSHED WITH 10ML OF NS, DRESSING IS INTACT. PATIENT TOLERATED WALK WELL AND DENIES ANY PAIN OR NAUSEA. IV FLUIDS INFUSING PER ORDER. PATIENT WITHOUT FURTHER NEEDS AT THIS TIME. CALL LIGHT AND PERSONAL BELONGINGS ARE WITHIN REACH.
--- NOTE | 2024-10-31 12:08 | NUR ---
PT NOT AVAILABLE FOR VISIT. PROVIDED PRAYER.
--- NOTE | 2024-10-31 12:30 | NUR ---
DR MCKINNON AT BEDSIDE AND PULLED PATIENT'S NG TUBE. PATIENT WITH RELIEF AND STATES SHE WANTS TO TAKE A NAP. STATES "CLEAR LIQUIDS TOMORROW, STAY WITH ICE CHIPS TODAY". FRESH ICE CHIPS PROVIDED. PATIENT WITHOUT FURTHER NEEDS AT THIS TIME. CALL LIGHT AND PERSONAL BELONGINGS ARE WITHIN REACH.
--- NOTE | 2024-10-31 13:58 | NUR ---
PATIENT MEDICATED PER EMAR. PATIENT RESTING IN BED WITH FAMILY AT BEDSIDE. PATIENT UP TO BATHROOM AND STATES "MY SON IS HERE, SO I WILL PROBABLY GO FOR A WALK WITH HIM WHEN I'M FINISHED. PATIENT WITHOUT FURTHER NEEDS FROM THIS RN AT THIS TIME. CALL LIGHT AND PERSONAL BELONGINGS ARE WITHIN REACH.
[2024-10-31] MEDS ORDERED: HYDROCODONE/ACETA 5/325 TAB PO PRN (14:00)
--- NOTE | 2024-10-31 14:24 | NUR ---
PATIENT REPORTS FEELING NAUSEATED AFTER PO MEDICATION. PRN DOSE OF ZOFRAN ADMINISTERED. IV FLUSHED WITH 10ML OF NS, DRESSING IS INTACT. IV FLUIDS INFUSING PER ORDER. JANICE LEBRON IN ROOM TO ASSIST WITH FINSIHING PATIENT'S BED CHANGE. PATIENT AMBULATED IN HALLS X1 AND REPORTS INCREASE PAIN. PATIENT EDUCATED ON MEDICATION TIMES AND DOSING AND STATES SHE WILL WAIT UNTIL NEXT DOSE AVAILABLE. PATIENT WITHOUT FURTHER NEEDS AT THIS TIME. CALL LIGHT AND PERSONAL BELONGINGS ARE WITHIN REACH.
--- NOTE | 2024-10-31 15:03 | NUR ---
1450 PROGRAM ELIGIBILITY SPECIALIST REPORTED TO THIS RN OF PATIENT BEING HYPOTENSIVE AT 89/47 WITH A MAP OF 56. THIS RN IN ROOM TO ASSESS PATIENT. BLOOD PRESSURE TAKEN AND WAS 84/47 WITH A MAP OF 54. MANUAL BLOOD PRESSURE TAKEN AND WAS 82/52. PATIENT REPORTING FEELING INCREASE DROWSINESS, PAIN, AND DIZZINESS WHILE LAYING IN BED. 1503 DR MCKINNON CALLED AND UPDATED ON PATIENT. MD STATES TO DRAW A CMP AND CBC, STAT AND TO GIVE PATIENT A 500ML NS BOLUS AFTER LABS ARE DRAWN. WITH NO FURTHER ORDERS AT THIS TIME. CALL ENDED.
[2024-10-31] MEDS ORDERED: SODIUM CHLORIDE 0.9% 500 ML IV PRN (15:15)
[2024-10-31 15:24] LABS: BASOPHILS 0.2 % (0.1-1.2); EOSINOPHILS 0.1 % (0.7-5.8); LYMPHOCYTES 18.9 % (19.3-51.7); MCH 31.2 PG (25.6-32.2); MCHC 33.9 g/dL (32.2-35.5); MCV 92.1 fL (79.4-94.8); MONOCYTES 7.7 % (4.7-12.5); NEUTROPHILS 72.6 % (34.0-71.1); RBC 3.17 M/uL (3.93-5.22)
[2024-10-31 15:39] LABS: ALT (SGPT) 19.0 U/L (14-59); AST (SGOT) 18.0 U/L (15-37); GLOMERULAR FILTRATION RATE,EST 113.0 mL/min (>60); PROTEIN, TOTAL 5.9 g/dL (6.4-8.2); UREA NITROGEN 12.0 mg/dL (7-18)
--- NOTE | 2024-10-31 15:45 | NUR ---
PATIENT RESTING IN BED WITH THIS RN AT BEDSIDE. PATIENT REPORTING "CHEST PRESSURE". PATIENT DENIES SHARP PAIN "UNLESS I TAKE A DEEP BREATH, BUT IT'S HARD TO GET A GOOD BREATH." OXYGEN SATS AT 88%, 2L NC APPLIED TO PATIENT, OXYGEN LEVELS INCREASE TO 96%. 1545 DR MCKINNON CALLED AND UPDATED ON PATIENT'S SYMPTOMS AND LAB RESULTS. WITH TELEPHONE ORDER FOR STAT CT FOR PE RULE OUT, CHANGE PATIENT'S FLUIDS FROM LR TO D5LR AT 85ML/HR DUE TO PATIENT'S CBG OF 52. ALSO WITH TELEPHONE ORDER OKAY TO GIVE PATIENT APPLE JUICE ONCE TO ASSIST WITH PATIENT'S CBG LEVEL. MD WITH NO FURTHER ORDERS AT THIS TIME. CALL ENDED.
[2024-10-31] MEDS ORDERED: DEXTROSE 5% - LACTATED RINGERS 1,000 ML IV SCH (16:30)
--- NOTE | 2024-10-31 16:30 | NUR ---
NEW BAG OF FLUIDS INFUSING PER ORDER. PATIENT TOLERATING PO APPLE JUICE WELL.
--- NOTE | 2024-10-31 17:55 | NUR ---
PATIENT MEDICATED PER EMAR. PATIENT WITHOUT FURTHER NEEDS AT THIS TIME. CALL LIGHT AND PERSONAL BELONGINGS ARE WITHIN REACH. FAMILY AT BEDSIDE.
--- NOTE | 2024-10-31 19:30 | NUR ---
REVIEVED REPORT FORM SMITH HEDRICK. PT LAYING IN BED WITH EYES OPEN, FAMILY IN ROOM X2. PATIENT STATED SHE FELT THOUGH SHE HAD A SINUS HEADACHE AND STATED SHE WANTED TO STAY AWAY FROM MORPHINE SO RN STATED TO LAY BACK WITH COOL WASHCOTH ON FOREHEAD, PATIENT AGREEABLE. LIGHTS TURNED DOWN, IVF INFUSING WITHOUT DIFFICUTLY, NO OTHER NEEDS STATED AT THIS TIME. CALL LIGHT IN REACH.
--- NOTE | 2024-10-31 19:45 | NUR ---
CALL LIGHT ANSWERED, PATIENT REQUESTING PAIN MEDICATION FOR NASAL DISCOMFORT AND HEADACHE.
--- NOTE | 2024-10-31 20:06 | NUR ---
per request of primary rn, prn pain medication given-see emar. brisk blood return noted. call light in reach. family in room, no additional needs or concerns verbalized.
--- NOTE | 2024-10-31 21:14 | NUR ---
JANICE GARAY GOT VITALS ON PATIENT. PATIENT WAS ASLEEP WHEN I ENTERED THE ROOM WITH TWO VISITORS. AFTER VITALS WERE TAKEN I GOT THE PATIENT AN ICE PACK PER THE VISITORS REQUEST. ONCE THE ICE PACK WAS GIVEN I TIDIED ROOM. NO FUTHER NEEDS WERE FOUND AND CALL LIGHT WAS WITHIN REACH.
--- NOTE | 2024-10-31 21:50 | NUR ---
ASSESSMENT COMPLETE, PATIENT RESTING IN BED COMFORTABLY, EASILY AROUSED WITH VERBAL CUES. FAMILY AT BEDSIDE. SCHEDULED MEDICATIONS GIVEN TO PATIENT PER ORDER. PATIENT CONTINUES TO REPORT DISCOMFORT IN HER HEAD AND SINUS AREA BUT WAS RESTING COMFORTABLY UPON RN ENTERING ROOM. CBG OBTAINED, 96. IVF CONTINUING TO INFUSE WITHOUT DIFFICULTY. PATIENT DENIES FURTHER NEEDS, CALL LIGHT IN REACH
--- NOTE | 2024-10-31 22:44 | NUR ---
PATIENT RESTING IN BED, GIVEN SCHEDULED PAIN MEDICATION. PATIENT DENIES FURTHER NEEDS, CALL LIGHT IN REACH. FAMILY REMAINS AT BEDSIDE
--- NOTE | 2024-10-31 23:36 | NUR ---
ROUNDED ON PATIENT. PATIENT LAYING ON BACK WITH COOL WASHCLOTH OVER FOREHEAD WITH EYES CLOSED, RESPIRATIONS EVEN AND UNLABORED. FAMILY MEMBER IN ROOM STATED PATIENT IS RESTING COMFORTABLY AND DENIES ANY NEEDS AT THIS TIME. IVF INFUSING WITHOUT DIFFICULTY. CALL LIGHT IN REACH.
[2024-11-01] VITALS (10 sets, daily range): BP systolic 98–111; BP diastolic 53–73
--- NOTE | 2024-11-01 01:12 | NUR ---
ROUNDED ON PATIENT, PATIENT RESTING WITH EYES CLOSED, RESPIRATIONS EVEN AND UNLABORED. PATIENT WOKE TO RN REPOSITIONING PATIENT. WHEN PATIENT WOKE, PATIENT REQUESTED MEDICATION FOR HEADACHE. PATIENT INFORMED THAT SHE IS NOT DUE FOR PAIN MEDICATION YET, SHE IS UNDERSTANDING. NO FURTHER NEEDS, CALL LIGHT IN REACH
--- NOTE | 2024-11-01 04:30 | NUR ---
ROUNDED ON PATIENT, PATIENT RESTING WITH EYES CLOSED, WOKE TO RN ENTERING ROOM. RESPIRATIONS EVEN AND UNLABORED. PATIENT REQUESTED TO AMBULATE TO RESTROOM, USED FWW WELL. BACK TO BED WITHOUT DIFFICULTY. SHE IS REQUESTING PAIN MEDICATION AT THIS TIME. IVF INFUSING WITHOUT DIFFICULTY, NO FURTHER NEEDS, CALL LIGHT IN REACH
--- NOTE | 2024-11-01 04:59 | NUR ---
ROUNDED ON PATIENT, PATIENT LAYING IN BED WITH EYES OPEN, FAMILY IN ROOM. PATIENT REQUESTED PAIN MEDICATION, PRN PAIN MED GIVEN PER EMAR FOR 8/10 PAIN. IVF INFUSING WITHOUT DIFFICULTY. FOCUSED ASSESSMENT OF ABD INCISION PERFORMED, INCISION SITES ARE WELL APPROXIMATED, NO REDNESS, NO DRAINAGE, DERMABOND INTACT. ICE CHIPS GIVEN. NO OTHER NEEDS IDENTIFIED, CALL LIGHT IN REACH.
[2024-11-01 05:31] LABS: BASOPHILS 0.1 % (0.1-1.2); EOSINOPHILS 0.1 % (0.7-5.8); LYMPHOCYTES 10.9 % (19.3-51.7); MCH 31.5 PG (25.6-32.2); MCHC 35.2 g/dL (32.2-35.5); MCV 89.4 fL (79.4-94.8); MONOCYTES 6.4 % (4.7-12.5); NEUTROPHILS 81.8 % (34.0-71.1); RBC 3.40 M/uL (3.93-5.22)
[2024-11-01 05:42] LABS: GLOMERULAR FILTRATION RATE,EST 118.0 mL/min (>60); UREA NITROGEN 3.0 mg/dL (7-18)
--- NOTE | 2024-11-01 06:10 | NUR ---
PATIENT AWAKE IN BED, FAMILY MEMBER ASLEEP AT BEDSIDE. PATIENTS PAIN REASSESSED 6/10 AND DENIES ANY FURTHER NEEDS WITH "NO". NO OTHER NEEDS IDENTIFIED, CALL LIGHT IN REACH.
--- NOTE | 2024-11-01 07:38 | PATH ---
[facility] [address], [place] [address] Signed SPECIMEN(S): A ILEOCECAL VALVE MASS SPECIMEN SOURCE: A. 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 - Negative for dysplasia or malignancy. - Unremarkable appendix. - 27 unremarkable lymph nodes. COMMENT: Given the location, is difficult to determine whether the prominent submucosal adipose tissue represents a prominent fat pad versus a submucosal lipoma. There is no evidence of adipocyte atypia or malignancy. The overlying surface epithelium shows no evidence of dysplasia or malignancy. Please correlate with imaging and clinical impression. IRG MICROSCOPIC EXAMINATION: Histologic sections of all submitted blocks (or IHC as applicable) are digitally scanned and examined. These findings, together with the gross examination, support the pathologic diagnosis. GROSS DESCRIPTION: The specimen, labeled and designated "Roxi, ileocecal valve mass," is received in formalin and consists of a portion of cecum and ascending colon (15.2 cm), terminal ileum (6.2 cm), appendix (4.5 x 0.6 cm) and pericolonic adipose tissue up to 6.3 cm in thickness. The serosal surface is fuentes vascularized and smooth. Opening reveals a fuentes mucosa with normal mucosal folds. The ileocecal valve displays a 2.3 x 1.6 x 1.1 cm possible polyp consuming 50% of the valve. The possible polyp is 6.4 cm from the mesenteric root, 3.5 cm from the proximal margin and 11.5 cm from the distal margin. No other areas of interest are identified. Sectioning of the appendix reveals a pinpoint lumen. Sectioning of the adjacent adipose tissue reveals numerous fuentes PATIENT NAME: SHAKIR PATE PATHOLOGY DATE OF : 78 REPORT #: [id number] PHYSICIAN: ALVA PATHOLOGY PCP: RAMONE DICKENS PAC REPORT IS CONFIDENTIAL AND NOT TO BE RELEASED WITHOUT AUTHORIZATION [facility] [address], [place] [address] Signed lymph nodes averaging zero point cores in greatest dimension. Erp Pm sections are submitted in cassettes A1-A17. Cassette Summary: (A1) proximal margin (A2) distal margin (A3) mesenteric root (A4-A8) ileocecal valve polyp, entirely (A9) appendix (A10) one node, bisected (A11) one node, trisected (A12) six nodes (A13) four nodes (A14) five nodes (A15) five nodes (A16) one node, bisected (A17) four nodes TN (under the direct supervision of a pathologist) The Gross Description was prepared using a voice recognition system. The report was reviewed for accuracy; however, sound-alike word errors, addition and/or deletions may occur. If there is any question about this report, please contact Client Services. ADDITIONAL NOTES: Immunohistochemical and/or in situ hybridization studies if performed in this case included appropriate positive controls that reacted as expected. This test was developed and its performance characteristics determined by [facility]. It has not been cleared or approved by the U.S. Food and Drug Administration. The FDA has determined that such clearance or approval is not necessary. This test is used for clinical purposes. It should not be regarded as investigational or for research. [facility] is certified under the Clinical Laboratory Improvement Amendments of 1988 (CLIA) as qualified to perform high complexity clinical laboratory testing. PERFORMING LABORATORY: Technical preparation was performed by [facility], [address] [place] [address] (CLIA#: [id number]). Professional interpretation was performed by [facility] � [facility], [address], [address], [place] [address] (CLIA#: [id number]). PATIENT NAME: SHAKIR PATE PATHOLOGY DATE OF : 78 REPORT #: [id number] PHYSICIAN: ALVA PATHOLOGY PCP: RAMONE DICKENS PAC REPORT IS CONFIDENTIAL AND NOT TO BE RELEASED WITHOUT AUTHORIZATION [facility] [address], [place] [address] Signed Diagnostician: Braden Gaviria MD Pathologist Electronically Signed 11/01/2024 Copies: ~ PATIENT NAME: SHAKIR PATE PATHOLOGY DATE OF : [birth year] REPORT #: [id number] PHYSICIAN: ALVA LOVE PCP: RAMONE DICKENS PAC REPORT IS CONFIDENTIAL AND NOT TO BE RELEASED WITHOUT AUTHORIZATION
--- NOTE | 2024-11-01 08:45 | NUR ---
AM ASSESSMENT COMPLETE - PT RESTING IN BED AFTER WALKING IN HALLWAY. SIPPING CLEAR LIQ BREAKFAST TRAY. PT C/O 09/14 HEADACHE AND LOWER ABD PAIN. TEARFULL. PT STATES SHE DOES NORMALLY TAKE EXCEDRIN FOR HEADACHES AT HOME AND HAS BEEN NPO FOR DAYS, PROVIDED BLACK TEA TO SEE IF CAFFEINE WITH HELP. TYLENOL ADMINISTERED. BOWEL TONES ACTIVVE, PT NERVOUS FOR FIRST BM, DENIES PASSING GAS. LINENS CHANGED, ROOM TIDIED. DAUGHTER AT BEDSIDE, ALL QUESTIONS ANSWERED.
--- NOTE | 2024-11-01 10:36 | NUR ---
PT RESTING IN BED WITH FAMILY AROUND. HOT WATER AND TEA WITH HONEY PROVIDED PER DAUGHTER REQUEST.
--- NOTE | 2024-11-01 11:33 | NUR ---
PATIENT HAS BEEN AMBULATING HALLWAYS WITH FAMILY AND USING A FWW. TOLERATING WELL WITH NO REPORTS OF PAIN OR DIZZINESS.
--- NOTE | 2024-11-01 11:41 | NUR ---
PT REQUESTED APRAZOLAM AND TORADOL. GIVEN. ALONG WITH ICE PACK
--- NOTE | 2024-11-01 13:15 | NUR ---
RECIEVED HAND OFF REPORT FROM SMITH JC
--- NOTE | 2024-11-01 13:55 | NUR ---
PT FAMILY PILE DRIVING NOZZLEMAN LIGHT CONCERNS OF "BLEEDING COMING FROM REAR END WHILE IN THE SHOWER". THIS RN CHECKED ON PT. LIQUID STOOL OBSERVED AND EDUCATED PT. PT UNDERSTANDS. NO FURTHER NEEDS. CALL LIGHT IN REACH
--- NOTE | 2024-11-01 14:49 | NUR ---
PATIENT SHOWERED INDEPENDENTLY WITH SET UP ASSISTANCE ONLY. BED LINENS WERE CHANGED. CLEAN GOWN AND SOCKS PROVIDED. FAMILY IN THE ROOM VISITING. WARM BLANKET PROVIDED.
--- NOTE | 2024-11-01 14:53 | NUR ---
In with pt to empty hat of 100ml brown liquid stool. Pt denied further needs at this time. Tammie Seymour in with pt.
--- NOTE | 2024-11-01 15:33 | NUR ---
PT AWAKE IN BED, SCHEDULED TYLENOL GIVEN FOR HEADACHE. FAMILY AT BEDSIDE. ICE WATER PROVIDED. CALL LIGHT IN REACH
--- NOTE | 2024-11-01 17:10 | NUR ---
PT BOOSTED IN BED FOR DINNER, DENIES ANY FURTHER NEEDS. REQUESTING PAIN MEDICATION. DISCUSSED WILL LOOK AT EMAR. FAMILY AT BEDSIDE.
--- NOTE | 2024-11-01 17:30 | NUR ---
DISCUSSED PAIN MEDICATION REGIMEN. PT AGREED TO WANTING PRN PAIN MEDICATION (SEE EMAR). PT EDUCATED DUE TO CONCERNS OF LAST NIGHT EPISODE RECOCCURING. PT COMPLIANT. PT HAS BEEN HAVING LIQUID STOOLS REASSURED ARE NORMAL RIGHT NOW SHE IS CONCERNED THEY ARE NOT. PT WAS ABLE TO TOLERATE FULL LIQUID DIET AND AGREED TO TRY REGULAR BREAKFAST IN THE MORNING. HOT WATER PROVIDED FOR TEA. NO NEEDS AT THIS TIME. CALL LIGHT IN REACH.
--- NOTE | 2024-11-01 17:40 | NUR ---
PT IS AMBULATING HALLWAYS WITH FAMILY. TOLERATING WELL.
--- NOTE | 2024-11-01 19:30 | NUR ---
REPORT RECEIVED FROM SMITH NEFF. pt AWAKE RESTING IN BED. HOT TEA PROVIDED. CALL LIGHT IN REACH. VISITOR IN ROOM.
--- NOTE | 2024-11-01 20:08 | NUR ---
pt UP AMBULATING IN HALLWAY WITH FAMILY.
[2024-11-01] MEDS ORDERED: FAMOTIDINE 20 MG TAB PO SCH (21:00)
--- NOTE | 2024-11-01 21:25 | NUR ---
FRIEND TO NURSES STATION. STATES pt WANTS TO KNOW WHATS "NEXT". IN ROOM, pt COMPLAINS OF ABDOMINAL PAIN, 07/15. NEW ICE PACKS PROVIDED. PRN PAIN MEDICATION ADMINISTERED. ASSESSMENT COMPLETE. VS COMPLETE, STABLE. IV SL WNL. ICE WATER, HOT TEA, JUICE PROVIDED. pt DENIES NAUSEA. CALL LIGHT IN REACH. FAMILY REMAINS IN ROOM. ASSISTED pt TO TURN TO RIGHT SIDE, PILLOW UNDER LEFT HIP AND BETWEEN LEGS.
[2024-11-01] MEDS ORDERED: ACETAMINOPHEN 500 MG TAB PO SCH (23:00)
--- NOTE | 2024-11-01 23:17 | NUR ---
IN ROOM FOR SCHEDULED TYLENOL ADMINISTRATION. pt SLEEPING, AWAKENS TO VOICE. DENIES PAIN AT THIS TIME. SBA TO RESTROOM WITH FWW FOR UNMEASURED VOID, MISSED HAT AND BACK TO BED. ASSISTED TO REPOSITION WITH PILLOWS UNDER KNEES. LYING IN BED ON BACK. CALL LIGHT IN REACH.
[2024-11-02] VITALS (7 sets, daily range): BP systolic 94–106; BP diastolic 53–72
--- NOTE | 2024-11-02 01:00 | NUR ---
pt RESTING IN BED WITH EYES CLOSED. BREATHING UNLABORED. NO DISTRESS NOTED.
--- NOTE | 2024-11-02 03:17 | NUR ---
ROUNDED ON pt. RESTING IN BED DROWSY. AWAKENS TO RN ENTERING ROOM. DENIES NEED FOR ADDITIONAL PAIN MEDICATIONS, OR OTHER NEEDS. CALL LIGHT IN REACH.
--- NOTE | 2024-11-02 05:05 | NUR ---
CALL LIGHT ANSWERED. pt REQUESTING TEA, PROVIDED. VSS. ASSESSMENT COMPLETE. pt RATES PAIN 09/14. PRN DILAUDID ADMINISTERED AT THIS TIME. PO SNACK PROVIDED, CRACKERS WITH MEDICATION. ICE WATER REFILLED. NEW ICE PACKS FOR ABDOMEN IN PLACE. CALL LIGHT AND PERSONAL SUPPLIES WITHIN REACH.
--- NOTE | 2024-11-02 06:40 | NUR ---
pt SLEEPING, AWAKENS TO RN ENTERING ROOM FOR SCHEDULED TYLENOL. DENIES TOILETING OR ADDITIONAL NEEDS. CALL LIGHT IN REACH.
--- NOTE | 2024-11-02 07:21 | NUR ---
VERBAL REPORT RECIEVED BY SMITH KEENAN. PATIENT RESTING IN BED, BREATHING EVEN AND UNLABORED. CALL LIGHT IN REACH. NO REQUESTS AT THIS TIME.
--- NOTE | 2024-11-02 08:05 | NUR ---
THIS PRODUCT ADVISOR IN ROOM TO TAKE PATIENT BREAKFAST. WHITE BOARD UPDATED. PAIENT SET UP FOR BREAKFAST. CALL LIGHT IN REACH. NO FURTHER NEEDS AT THIS TIME.
--- NOTE | 2024-11-02 10:34 | NUR ---
PATIENT RESTING IN BED WITH EYES CLOSED, BREATHING EVEN AND UNALBORED. VISITOR AT BEDSIDE, NO NEEDS AT THIS TIME. CALL LIGHT IN REACH.
--- NOTE | 2024-11-02 11:08 | NUR ---
MORNING ASSESSMENT COMPLETE. POST-OP SURGICAL SITE SHOWS NO SIGNS OF INFECTION. PATIENT COMPLAINS OF 5/10 PAIN, WILL DISCUSSED OTHER PAIN MEDICATION WITH DR. KNAPP DUE TO PATIENT REFUSING DILAUDID. NO FURTHER NEEDS AT THIS TIME. FAMILY AT BEDSIDE, CALL LIGHT IN REACH.
--- NOTE | 2024-11-02 11:33 | NUR ---
PATIENT UP WALKING THE HALLS WITH FAMILY. PATIENT STATES "INCREASED PAIN" AND WILLING TO TAKE THE SMALLER DOSE OF DILAUDID. PATIENT ALSO STATES THAT SHE IS NAUSEOUS.
--- NOTE | 2024-11-02 11:46 | NUR ---
ADMINISTERED PRN NAUSEA MEDICATION AND PAIN MEDICATION (SEE EMAR) FOR 09/14 ABD/HEAD PAIN. PT RESTING IN BED, DENIES NEEDS. PT ATTEMPTED TO EAT BREAKFAST THIS TIME. STATES IT WAS GROSS AND COULDNT FINISH IT. NO NEEDS AT THIS TIME. CALL LIGHT IN REACH
--- NOTE | 2024-11-02 12:43 | NUR ---
THIS RN, MIAN, SMITH AND RA AT BEDSIDE DISCUSSING POC. DISCUSSED IMPORTANCE OF HAVING THE BLINDS UP AND IT WAS DISCUSSED ON CHANGING PAIN REGIMEN. PT UNABLE TO EAT LUNCH, ATTEMPTED. BUT WAS GIVEN THE OKAY FROM RA TO HAVE FOOD BROUGHT IN FROM OUTSIDE FOOD SOURCE. NO NEEDS AT THIS TIME. CALL LIGHT IN REACH. VISITOR AT BEDSIDE
[2024-11-02] MEDS ORDERED: POLYETHYLENE GLYCOL 3350 1 PACKET PO SCH (13:00)
--- NOTE | 2024-11-02 13:05 | NUR ---
PT AMBULATING HALLWAYS WITH FRIEND. TOLERATING WELL.
--- NOTE | 2024-11-02 13:57 | NUR ---
PATIENT IN BED RESTING AT THIS TIME, VISITORS IN ROOM. VITALS AND I&O'S DONE AND CHARTED. CALL LIGHT IN REACH. NO FURTHER NEEDS AT THIS TIME.
[2024-11-02] MEDS ORDERED: IBUPROFEN 600 MG TAB PO PRN (14:00)
--- NOTE | 2024-11-02 14:05 | NUR ---
IN ROOM WITH PATIENT, DISCUSSED NEW ORDER OF MOTRIN. PATIENT AGREED TO ALTERNATE BETWEEN TYLENOL AND MOTRIN FOR PAIN. FAMILY AT BEDSIDE, CALL LIGHT AT REACH.
--- NOTE | 2024-11-02 14:37 | NUR ---
PT AMBULATING THE HALLWAY WITH FAMILY. TOLERATING FAMILY.
--- NOTE | 2024-11-02 15:24 | NUR ---
FOCUSED ASSESSMENT COMPLETED, PATIENT HAS HAD FREQUENT URINATION AND STATED "IT HAS BEEN STINGING WHEN I URINATE." DISCUSSED WITH PATIENT TO NOTIFY RN IF IT GETS WORSE. FRESH ICE WATER GIVEN, NO FURTHER NEEDS AT THIS TIME. CALL LIGHT IN REACH.
--- NOTE | 2024-11-02 16:29 | NUR ---
LATOYA COMPLAINS OF NAUSEA, DISCUSSED WITH PATIENT THAT SCHEDULED MEDS FOR NAUSEA ARE NOT DUE YET. PATIENT GIVEN MOTRIN FOR 5/10 ABDOMINAL PAIN. FRESH ICE PACKS APPLIED TO POST-OP SITE, FRESH WATER PROVIDED, BLINDS OPEN. FAMILY IN THE ROOM WITH PATIENT. CALL LIGHT IN REACH.
--- NOTE | 2024-11-02 17:59 | NUR ---
PT REPORTS NAUSEA. PRN MEDICATION ADMINSISTERED (PER EMAR). THIS RN DISCUSSED ENSURES FOR EXTRA NUTRIENTS DUE TO PT NOT HAVING A GREAT APPETITE. FRIEND AT BEDSIDE. ENSURE PROVIDED. CALL LIGHT IN REACH
--- NOTE | 2024-11-02 18:25 | NUR ---
PATIENT IN BED WATCHING TV AT THIS TIME. VITALS AND I&O'S DONE AND CHARTED. CALL LIGHT IN REACH. NO FURTHER NEEDS AT THIS TIME.
--- NOTE | 2024-11-02 21:40 | NUR ---
pt AWAKE WHEN RN ENTERS ROOM, DROWSY. COMPLAINS OF 4/10 ABDOMINAL PAIN. SCHEDULED TYLENOL ADMINISTERED. VSS. URINE HAT EMPTIED. ICE PACK PROVIDED FOR ABDOMEN. CALL LIGHT AND PERSONAL SUPPLIES WITHIN REACH.
--- NOTE | 2024-11-02 23:26 | NUR ---
REPORT RECEIVED FROM CARLOS RN AND KIAH MTZ. PT LAYING IN BED. RESPIRATIONS EVEN AND UNLABORED. REPORTS PAIN AT TOLERABLE LEVEL. DENIES FURTHER NEEDS. CALL LIGHT IN REACH.
--- NOTE | 2024-11-02 23:42 | NUR ---
PT AMBULATED TO THE BATHROOM INDEPENDENTLY. TOLERATED WELL. DENIES FURTHER NEEDS. CALL LIGHT IN REACH.
--- NOTE | 2024-11-03 00:03 | NUR ---
PT LAYING IN BED. RESPIRATIONS EVEN AND UNLABORED. NO NEEDS NOTED AT THIS TIME. CALL LIGHT IN REACH.
--- NOTE | 2024-11-03 01:50 | NUR ---
PT RESTING IN BED. RESPIRATIONS EVEN AND UNLABORED. C/O 07/15 PAIN, PRN IBUPROFEN GIVEN PER PT REQUEST. ENCOURAGED TAKING A BITE OF CRACKERS BEFORE TAKING THE IBUPROFEN. WARM BLANKET PROVIDED. DENIES FURTHER NEEDS. CALL LIGHT IN REACH.
--- NOTE | 2024-11-03 03:43 | NUR ---
PT LAYING IN BED. RESPIRATIONS EVEN AND UNLABORED. NO APPARENT NEEDS NOTED AT THIS TIME. PERSONAL BELONGINGS AND CALL LIGHT IN REACH.
[2024-11-03 06:10] VITALS: BP 91/51
[2024-11-03 06:27] VITALS: BP 91/51
[2024-11-03 06:31] VITALS: BP 103/59
--- NOTE | 2024-11-03 06:33 | NUR ---
PT LAYING IN BED, AWAKE. RESPIRATIONS EVEN AND UNLABORED. REPORTED 4/10 ABDOMINAL PAIN. DUE TYLENOL GIVEN ORDERED. DENIES FURTHER NEEDS. PERSONAL BELONGINGS AND CALL LIGHT IN REACH.
--- NOTE | 2024-11-03 06:50 | NUR ---
PT LAYING IN BED. RESPIRATIONS EVEN AND UNLABORED. DENIES NEEDS AT THE MOMENT. CALL LIGHT NA PERSONAL BELONGINGS IN REACH.
--- NOTE | 2024-11-03 07:00 | NUR ---
PT AMBULATING UNIT HALLS WITH SISTER, TOLERATING WELL.
--- NOTE | 2024-11-03 07:16 | NUR ---
VERBAL REPORT RECIVED BY SMITH LOPEZ. PATIENT UP IN RECLINER, DENIES ANY NEEDS AT THIS TIME. CALL LIGHT IN REACH.
--- NOTE | 2024-11-03 08:01 | NUR ---
MORNING ASSESSMENT COMPLETE. PATIENT COMPLAINS OF 4/10 POST-OP ABD PAIN, PRN PAIN MEDS GIVEN (SEE EMAR). PAIN MEDICATIONS SCHEDULE DISCUSSED. PATIETN IN RECLINER, BLINDS OPEN, HOT TEA PROVIDED. NO FURTHER NEEDS AT THIS TIME. CALL LIGHT IN REACH.
[2024-11-03 09:08] VITALS: BP 91/55
--- NOTE | 2024-11-03 09:09 | NUR ---
PT SALES RECORD CLERK LIGHT REQUESTING NURSE. THIS RN AND SMITH PAPPAS IN ROOM. PT SISTER STARTS EXPLAINING PT CAN NOT SLEEP. PT BEGINS TO CRY STATING SHE IS HAVING TROUBLES SLEEPING AND DOESNT KNOW WHAT TO DO. OPTIONS WERE SUGGESTED SUCH HEATPAD WHICH WAS ALREADY ON HER BACK, PT HAD SLEEP MASK ON, AND THEN FAN WAS SUGGESTED WHICH PT AGREED TO. IT WAS DISCUSSED THAT TOOL ADJUSTER WILL BE IN HERE TO GRAB VITALS AND DND SIGN WILL BE PLACED ON THE DOOR SO PATIENT CAN REST. PT IN AGREEMENT. NO NEEDS AT THIS TIME. CALL LIGHT IN REACH. FAMILY REMAINS AT BEDSIDE.
--- NOTE | 2024-11-03 10:15 | NUR ---
PT AMBULATING HALLS WITH FAMILY AND FRIEND. TOLERATING WELL.
--- NOTE | 2024-11-03 11:06 | NUR ---
INTO SEE PATIENT. FAMILY AT BEDSIDE. PATIENT TO DISCHARGE HOME WHEN MEDICALLY CLEARED FOR DISCHARGE. NO CM NEEDS.
--- NOTE | 2024-11-03 11:38 | NUR ---
PATIENT UP IN RECLINER, FAMILY IN THE ROOM. PATIENT APPEARS TO BE IN BETTER SPIRITS AT THIS TIME. NO FURTHER NEEDS AT THIS TIME. CALL LIGHT IN REACH.
--- NOTE | 2024-11-03 11:47 | NUR ---
HOURLY ROUNDING. PATIENT IS VISITING WITH FAMILY AND FRIENDS. NO REQUEST AT THIS TIME
--- NOTE | 2024-11-03 13:03 | NUR ---
PATIENT UP IN RECLINER EATING LUNCH. DR KNAPP IN ROOM ROUNDING WITH THIS RN AND AISHWARYA MTZ.
[2024-11-03] MEDS ORDERED: IBUPROFEN600 MG PO (13:07)
[2024-11-03] MEDS ORDERED: ACETAMINOPHEN500 MG PO (13:08)
[2024-11-03 13:09] VITALS: BP 98/52
[2024-11-03] MEDS ORDERED: DILAUDID2 MG PO (13:09)
--- NOTE | 2024-11-03 13:11 | NUR ---
HOURLY ROUNDING. PATIENT LAYING IN BED, FAMILY AT BEDSIDE
[2024-11-03 14:08] VITALS: BP 97/58
--- NOTE | 2024-11-03 14:14 | NUR ---
PATIENT GIVEN SCHEDULED PAIN MEDICATION FOR 4/10 POST-OP ABDOMINAL PAIN. SMITH NEFF WENT OVER DISCHARGE INSTRUCTIONS WITH PATIENT AND FAMILY, ALL QUESTIONS ANSWERED. JANICE LUCAS ASSISTS PATIENT TO CAR VIA WHEELCHAIR. PATIENT LEAVES WITH FAMILY AND FRIEND WITH BLANKET, PHONE, PROSPECTING DRILLER HELPER, AND PURSE.
--- NOTE | 2024-11-04 15:55 | DS ---
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 HISTORY: This patient is admitted by Dr. Mckinnon for right laparoscopic assisted colectomy for ileocecal mass identified on colonoscopy for rectal bleeding. The size of the mass and broad-base were not felt suitable for endoscopic removal. On that basis she is admitted for partial colectomy. PERTINENT PHYSICAL EXAMINATION: GENERAL: A healthy appearing white woman in no distress. CHEST: Clear. HEART: Regular. ABDOMEN: Soft without palpable mass. HOSPITAL COURSE: The patient underwent a laparoscopic assisted right colectomy by Dr. Ced Mckinnon on October 29, 2024. The final pathology demonstrated ileocecal valve with lymphoid hyperplasia and prominent fat pad with an unremarkable appendix. No evidence of dysplasia or malignancy and 27 unremarkable lymph nodes. Postoperatively, her pain was controlled, though she was having a considerable amount of anxiety. Her nasogastric tube and Smith catheter removed on the second postoperative day and she was advanced to clear liquids. Her dominant issue postoperatively was anxiety for which medications were administered with beneficial effect. She did undergo a CT scan of her chest on October 31 due to hypoxemia, but there was no evidence of pulmonary embolism. Her relative hypoxemia improved with pulmonary care, ambulation, and so forth. She had progressive improvement and by the day of discharge she was ambulating well, tolerating a regular diet, has had bowel movement and wounds appear to be healing well. She is scheduled to follow up with Dr. Mckinnon in the next [address] Mckinnon is present again. The results for resection have been conveyed to her. DISCHARGE MEDICATIONS: Include 1. Ibuprofen 600 mg p.o. q.6 hours as needed for pain #60, no refill. 2. Tylenol 500 mg two tablets p.o. every 6 to 8 hours p.r.n. pain #60, no refills. 3. Hydromorphone, Dilaudid 2 mg one to two tabs p.o. q.4 hours for severe pain only #6, no refill. She will continue her usual medicines of propranolol 10 mg one to two as Electronically Signed By: JESÚS KNAPP MD 11/04/24 1555 PATIENT NAME: SHAKIR PATE DISCHARGE SUMMARY DATE OF : 78 REPORT #: [id number] PHYSICIAN: JESÚS KNAPP MD PCP: RAMONE DICKENS PAC REPORT IS CONFIDENTIAL AND NOT TO BE RELEASED WITHOUT AUTHORIZATION [facility] [address] [place] [id number] Signed needed for panic attack. 4. Fluoxetine 20 mg p.o. daily. 5. Clonazepam 0.5 mg as needed for anxiety and panic attack. DISCHARGE DIAGNOSES: 1. 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 Mckinnon, October 31, 2024. 2. Severe underlying anxiety. MD WILLIAM Lott/WALESKA /[id number] cc: MD Ramone Christiansen PA-C Copies: CED MCKINNON MD ~ Electronically Signed By: JESÚS KNAPP MD 11/04/24 1555 PATIENT NAME: SHAKIR PTAE DISCHARGE SUMMARY DATE OF : 78 REPORT #: [id number] PHYSICIAN: JESÚS KNAPP MD PCP: RAMONE DICKENS PAC REPORT IS CONFIDENTIAL AND NOT TO BE RELEASED WITHOUT AUTHORIZATION
== END 2024-11-03 14:20 | disposition home or self-care (01) | DRG 331 ==
LOC: DS 09:51 → MS 16:05 → DS 16:06 → MS 16:07
PROVIDERS: ADMIT Surgery; ATTEND Surgery
PROC: 0T9B70Z Drainage of Bladder with Drainage Device, Via Natural or Artificial Opening (ICD-10-PCS; 2024-10-29)
PROC: 0DH67UZ Insertion of Feeding Device into Stomach, Via Natural or Artificial Opening (ICD-10-PCS; 2024-10-29)
PROC: 3E03329 Introduction of Other Anti-infective into Peripheral Vein, Percutaneous Approach (ICD-10-PCS; 2024-10-29)
PROC: 0DTF0ZZ Resection of Right Large Intestine, Open Approach (ICD-10-PCS; principal; 2024-10-29 12:30)
DX: D12.0 Benign neoplasm of cecum (principal); F41.9 Anxiety disorder, unspecified; F32.A Depression, unspecified; R09.02 Hypoxemia; Z88.2 Allergy status to sulfonamides
CPT/HCPCS: 00790; 36415; 71260; 76942; 80048; 80053; 85025; A9270; J0131; J0295; J1100; J1644; J1790; J1885; J2003; J2270; J2405; J2704; J3010; J3475; J3490; J7040; J7121; Q9967

== ENCOUNTER 2025-01-06 17:01 | Emergency (ER) | payer OTHER, BC ==
[~2025-01-06] VITALS: Ht 165.1 cm; Wt 68.7 kg
--- OUTSIDE RECORDS SUMMARY | ~2025-01-06 | XMS | Continuity of Care Document ---
Demographics + + + | Address | [address] | | | [place] [address] | + + + | Preferred Language | Unknown | + + + | Marital Status | | + + + | Caodaism Affiliation | Unknown | + + + | Race | White | + + + | Ethnic Group | Not or | + + + Author + + + | Author | [facility] | + + + | Organization | [facility] | + + + | Address | [address] | | | [place] [address] | + + + | Phone | | + + + Care Team Providers + + + + | Care Head Correction Officer Name | Role | Phone | + + + + Unavailable | Unavailable | + + + + Unavailable | Unavailable | + + + + Allergies No information. Encounters No information. Functional Status No information. Immunizations No information. Medications + + + + | date | description | facility | + + + + | (no date) | MEDROXYPROGESTERONE | [facility] [place] | | | ACETATE | [facility] | + + + + | (no date) | METHYLPHENIDATE HCL | [facility] [place] [place] [facility] | | | | [facility] | + + + + | (no date) | DOXYCYCLINE MONOHYDRATE | [facility] [place] [facility] [place] | | | | [facility] | + + + + | (no date) | clonAZEpam | [facility] [place] [facility] [place] | | | | [facility] | + + + + | (no date) | IBUPROFEN | [facility] [place] [facility] [place] | | | | [facility] | + + + + | (no date) | ACETAMINOPHEN | [facility] [place] | | | | [facility] | + + + + | (no date) | ACETAMINOPHEN | [facility] | | | | [facility] | + + + + | (no date) | FLUOXETINE HCL | [facility] | | | | [facility] | + + + + | (no date) | PROPRANOLOL HCL | [facility] | | | | [facility] | + + + + Problems No information. Procedures No information. Results/Labs No information. Social History +--------+ + + | date | description | facility | +--------+ + + Vital Signs + + +---------+---------+ | date | measurement | value | units | + + +---------+---------+ | 2024-10-10 00:00 | BP_diastolic | 62 | mmHg | + + +---------+---------+ | 2024-10-10 00:00 | BP_systolic | 101 | mmHg | + + +---------+---------+ | 2024-10-10 00:00 | heart_rate | 64 | /min | + + +---------+---------+ | 2024-10-10 00:00 | o2_saturation | 97 | % | + + +---------+---------+ | 2024-10-10 00:00 | respiration_rate | 16 | /min | + + +---------+---------+ | 2024-10-10 00:00 | | 98.2 | F | | | temperature_standar | | | | | d | | | + + +---------+---------+"
[~2025-01-06 17:01] MED LIST changes: -AMP/SULBACTAM SOD 3 GM in SODIUM CHLORIDE 0.9% 100 ML IV SCH; +DILAUDID2 MG PO; -HEParin SOD (PORCINE) 5,000 UNIT/ML SDV SUB-Q SCH; -IBLOOD GLUCOSE TEST STRIP 1 EA TEST VI PRN; +IBUPROFEN600 MG PO; -LACTATED RINGER'S 1,000 ML IV SCH; -LIDOCAINE HCL 1% 5 ML SDV INJ ONE
--- OUTSIDE RECORDS SUMMARY | 2025-01-06 17:02 | XMS ---
PreManage Notification: SHAKIR PATE Security Automated Logistics Specialist Events No recent Security Events currently on file CRITERIA MET - PDMP [facility] Current FAMILY PHONE: Unknown Jose D has no Care Guidelines for this patient. Wero VISIT COUNT (12 MO.) 2 [facility] TOTAL 2 NOTE: Visits indicate total known visits. ED/UCC VISIT TRACKING (12 MO.) 01/06/2025 17:01 [facility] TYPE: Emergency COMPLAINT: - ABDOMINAL PAIN 04/24/2024 20:53 [facility] TYPE: Emergency COMPLAINT: - HAND INJURY DIAGNOSES: - Allergy status to sulfonamides - Contusion of right hand, initial encounter - Exposure to other specified factors, initial encounter - Other skilled nursing (current) drug therapy INPATIENT VISIT TRACKING (12 MO.) 10/29/2024 16:07 [facility] TYPE: Medical Surgical COMPLAINT: - LAPARASCOPIC ASSISTED RIGHT COLECTOMY DIAGNOSES: - Allergy status to sulfonamides - Allergy status to sulfonamides - Anxiety disorder, unspecified - Anxiety disorder, unspecified - Benign neoplasm of cecum - Depression, unspecified - Depression, unspecified - Hypoxemia - Hypoxemia [email or web address]
[2025-01-06] MEDS ORDERED: HYDROmorphone HCL 1 MG/ML SYR IV PRN (17:15)
[2025-01-06] MEDS ORDERED: SODIUM CHLORIDE 0.9% 1,000 ML IV ONE (17:15)
[2025-01-06 17:20] LABS: BASOPHILS 0.4 % (0.1-1.2); EOSINOPHILS 0.5 % (0.7-5.8); LYMPHOCYTES 36.3 % (19.3-51.7); MCH 31.3 PG (25.6-32.2); MCHC 34.0 g/dL (32.2-35.5); MCV 91.9 fL (79.4-94.8); MONOCYTES 6.2 % (4.7-12.5); NEUTROPHILS 55.9 % (34.0-71.1); RBC 4.06 M/uL (3.93-5.22)
[2025-01-06] MEDS ORDERED: fentaNYL citrate 100 MCG/2 ML VIAL IV ONE (17:30)
[2025-01-06 17:47] LABS: ALT (SGPT) 22.0 U/L (14-59); AST (SGOT) 12.0 U/L (15-37); GLOMERULAR FILTRATION RATE,EST 113.0 mL/min (>60); PROTEIN, TOTAL 7.8 g/dL (6.4-8.2); UREA NITROGEN 14.0 mg/dL (7-18)
[2025-01-06] MEDS ORDERED: KETOROLAC TROMETHAMINE 30 MG/ML VIAL IV ONE (18:00)
[2025-01-06] MEDS ORDERED: fentaNYL citrate 100 MCG/2 ML VIAL IV PRN ×2 (18:00→18:45)
[2025-01-06 19:04] LABS: BLOOD/HGB, URINE MODERATE (Negative); KETONE, URINE TRACE (Negative); LEUK ESTERASE, URINE NEGATIVE (negative); NITRITE, URINE NEGATIVE (negative)
[2025-01-06] MEDS ORDERED: ONDANSETRON ODT8 MG PO (19:10)
[2025-01-06] MEDS ORDERED: PERCOCET 7.5-31 EACH PO (19:10)
[2025-01-06 19:13] LABS: BACTERIA, URINE NONE SEEN /hpf (negative); CRYSTALS, URINE NONE SEEN (0-1+); EPITHELIAL CELLS, URINE SQUAMOUS 1+ /lpf (0-1+)
[2025-01-06 19:14] LABS: CASTS, URINE NONE SEEN \\lpf; REFLEX CULTURE, URINE No (No)
[2025-01-06] MEDS ORDERED: OXYCODONE/ACETAMINOPHEN 1 TAB HOME.PACK PO ONE (19:15)
[2025-01-06] MEDS ORDERED: OXYCODONE/APAP 5/325 TAB PO ONE (19:15)
[2025-01-06 19:30] VITALS: BP 129/86
== END 2025-01-06 19:30 | disposition home or self-care (01) ==
LOC: ED 17:01
PROVIDERS: Emergency Medicine
DX: N83.202 Unspecified ovarian cyst, left side (principal); Z90.710 Acquired absence of both cervix and uterus; Z88.2 Allergy status to sulfonamides; Z79.899 Other long term (current) drug therapy
CPT/HCPCS: 36415; 74177; 76830; 76856; 80053; 81001; 85025; 96374; 96375; 96376; 99284-25; J1885; J2405; J3010; J7030